=== PATIENT | male | born 1950 | race Caucasian/White ===

== ENCOUNTER 2020-04-09 06:48 | Outpatient (NON) | payer MEDICARE, OTHER, SELFPAY ==
[2020-04-09 19:05] LABS: SARS-CoV-2 RNA PCR Negative
== END 2020-04-09 06:49 ==
LOC: ANHCOVIDDT 06:51
PROVIDERS: PCP Family Medicine; Visit Provider Family Medicine
DX: Z20.828 Contact with and (suspected) exposure to other viral communicable diseases (principal); R05 Cough; R06.02 Shortness of breath
CPT/HCPCS: 87635; C9803; U0003

== ENCOUNTER → 2020-05-23 12:39 | Outpatient (CLI) | payer MEDICARE, OTHER, SELFPAY ==
--- NOTE | ~2020-05-23 | XR_ITS ---
EXAMINATION: XR lumbar spine 2-3V EXAM DATE: 05/23/2020 12:53 INDICATION: M54.5 - Low back pain TECHNIQUE: Lumber spine frontal, lateral, lateral L5-S1 projections for interpretation. There is no prior study for comparison. FINDINGS: There is 2 mm retrolisthesis L2 on L3 and L3 on L4. Mild to moderate disc disease L2-S1. Mi ld to moderate lumbar facet arthropathy, lower levels more affected. There are no acute fractures jalil ntified. There are no bony erosions identified. Sacrum, sacroiliac joints, sacral arcuate lines are i ntact. There are cholecystectomy clips. IMPRESSION: [id number] lumbar spondylosis. Reviewed, dictated and finalized at location A. [place] [employer] IMPRESSION: [id number] lumbar spondylosis.
== END ==
PROVIDERS: PCP Family Medicine; Visit Provider Physician Assistant
DX: M47.896 Other spondylosis, lumbar region (principal)
CPT/HCPCS: 72100